=== PATIENT | male | born 1985 ===

== ENCOUNTER 2018-09-03 14:03 | Emergency (ER) | payer SELFPAY ==
--- NOTE | 2018-09-03 14:09 | ER Report ---
History and Physical Time Seen By MD: 14:09 HPI/ROS CHIEF COMPLAINT: upper dental pain HISTORY OF PRESENT ILLNESS: This is a 32 year old male. He has a history of dental problems in the past and a couple of days ago, had onset of pain in bilateral maxillary areas, somewhat worse on left side. Hurst to bite down. No pain with hot or cold exposure. Has broken teeth and poor dentition. Has not noted swollen gums or abscess/drainage. Denies fevers or chills. Mild cough, chronic, non-productive. Some pain in left anterior neck, thought was due to exercise. Not having significant congestion, but does have some drainage in throat, no sore throat. Not short of breath. Allergies: Coded Allergies: No Known Drug Allergies (Unverified , 09/03/18) Home Meds Active Scripts Amoxicillin (AMOXICILLIN) 500 Mg Capsule, 1 CAP PO Q8H, #30 CAPSULE 0 Refills Prov:SANDRA LOO MD 09/03/18 Reviewed Nurses Notes: Yes Constitutional Vital Sign - Last 24 Hours 09/03/18 09/03/18 14:07 15:53 Temp 98.5 98.3 Pulse 77 89 Resp 16 17 B/P (MAP) 126/81 107/89 (95) Pulse Ox 96 96 O2 Delivery Room Air Room Air Physical Exam General Appearance: Alert, no distress. Eyes: Pupils equal and round no injection. ENT: Normal oral mucosa. Moist mucous membranes. Poor dentition, and no redness in maxillary gums. Do not feel swelling with palpation of face, but has pain in bilateral maxillary areas. Has some thick post-nasal drainage and erythema in posterior oropharynx. Nasal mucosa shows erythema and mild mucous. Tympanic membranes are normal. Neck: Neck is supple and non tender to palpation at this time. No lymphadenopathy noted. Respiratory: Chest is non tender, lungs are clear to auscultation. Cardiac: regular rate and rhythm Neuro: Alert and oriented x3, no deficits. Skin: No rashes or lesions. DIFFERENTIAL DIAGNOSIS: After history and physical exam differential diagnosis was considered for bilateral maxillary pain, no real objective signs of dental infection, but this would be the most likely diagnosis. Would also consider sinus disease as there are changes in nose and throat consistent with this as well. IV, labs and contrast facial CT ordered. Medical Decision Making Data Points Result Diagram: 09/03/18 1425 09/03/18 1425 Laboratory Hematology Test 09/03/18 14:25 Red Blood Count 4.85 M/uL (4.00-5.60) Mean Corpuscular Volume 91.2 fL (80.0-96.0) Mean Corpuscular Hemoglobin 30.9 pg (26.0-33.0) Mean Corpuscular Hemoglobin Concent 33.9 g/dL (32.0-36.0) Red Cell Distribution Width 12.8 % (11.5-14.5) Mean Platelet Volume 8.4 fL (7.2-11.1) Neutrophils (%) (Auto) 66.1 % (39.4-72.5) Lymphocytes (%) (Auto) 21.8 % (17.6-49.6) Monocytes (%) (Auto) 9.7 % (4.1-12.4) Eosinophils (%) (Auto) 1.7 % (0.4-6.7) Basophils (%) (Auto) 0.7 % (0.3-1.4) Nucleated RBC Relative Count (auto) 0.0 /100WBC Neutrophils # (Auto) 5.6 K/uL (2.0-7.4) Lymphocytes # (Auto) 1.8 K/uL (1.3-3.6) Monocytes # (Auto) 0.8 K/uL (0.3-1.0) Eosinophils # (Auto) 0.1 K/uL (0.0-0.5) Basophils # (Auto) 0.1 K/uL (0.0-0.1) Nucleated RBC Absolute Count (auto) 0.00 K/uL Sodium Level 144 mmol/L (137-145) Potassium Level 4.2 mmol/L (3.5-5.0) Chloride Level 109 mmol/L (98-107) Carbon Dioxide Level 23 mmol/L (22-30) Blood Urea Nitrogen 16 mg/dl (9-21) Creatinine 0.80 mg/dl (0.66-1.25) Glomerular Filtration Rate Calc > 60.0 Random Glucose 99 mg/dl (75-110) Calcium Level 9.2 mg/dl (8.4-10.2) Total Bilirubin 0.5 mg/dl (0.2-1.3) Aspartate Amino Transf (AST/SGOT) 20 U/L (0-35) Alanine Aminotransferase (ALT/SGPT) 30 U/L (0-56) Alkaline Phosphatase 50 U/L (0-126) Total Protein 7.1 g/dl (6.3-8.2) Albumin 4.3 g/dl (3.5-5.0) Chemistry Test 09/03/18 14:25 White Blood Count 8.5 k/uL (4.5-11.0) Red Blood Count 4.85 M/uL (4.00-5.60) Hemoglobin 15.0 g/dL (14.0-18.0) Hematocrit 44.3 % (42.0-52.0) Mean Corpuscular Volume 91.2 fL (80.0-96.0) Mean Corpuscular Hemoglobin 30.9 pg (26.0-33.0) Mean Corpuscular Hemoglobin Concent 33.9 g/dL (32.0-36.0) Red Cell Distribution Width 12.8 % (11.5-14.5) Platelet Count 196 K/uL (150-450) Mean Platelet Volume 8.4 fL (7.2-11.1) Neutrophils (%) (Auto) 66.1 % (39.4-72.5) Lymphocytes (%) (Auto) 21.8 % (17.6-49.6) Monocytes (%) (Auto) 9.7 % (4.1-12.4) Eosinophils (%) (Auto) 1.7 % (0.4-6.7) Basophils (%) (Auto) 0.7 % (0.3-1.4) Nucleated RBC Relative Count (auto) 0.0 /100WBC Neutrophils # (Auto) 5.6 K/uL (2.0-7.4) Lymphocytes # (Auto) 1.8 K/uL (1.3-3.6) Monocytes # (Auto) 0.8 K/uL (0.3-1.0) Eosinophils # (Auto) 0.1 K/uL (0.0-0.5) Basophils # (Auto) 0.1 K/uL (0.0-0.1) Nucleated RBC Absolute Count (auto) 0.00 K/uL Glomerular Filtration Rate Calc > 60.0 Calcium Level 9.2 mg/dl (8.4-10.2) Total Bilirubin 0.5 mg/dl (0.2-1.3) Aspartate Amino Transf (AST/SGOT) 20 U/L (0-35) Alanine Aminotransferase (ALT/SGPT) 30 U/L (0-56) Alkaline Phosphatase 50 U/L (0-126) Total Protein 7.1 g/dl (6.3-8.2) Albumin 4.3 g/dl (3.5-5.0) EKG/Imaging Imaging EXAMINATION: CT facial bone with IV contrast HISTORY: Bilateral maxillary pain, left side worse. COMPARISON: None. TECHNIQUE: Axial images were obtained from the superior aspect of the orbits through the inferior aspect of mandible with IV contrast. Coronal and sagittal reformatted images were obtained from the axial source data. CONTRAST: 75 mL of IV Isovue-370. One of the following dose optimization techniques was utilized in the performance of this exam: Automated exposure control; adjustment of the mA a nd/or kV according to the patient's size; or use of an iterative reconstruction technique. Specific details can be referenced in the facility's radiology CT exam operational policy. FINDINGS: Soft tissues: There is no focal soft tissue abscess or fluid collection. Mandible/TMJ: The mandibular premolar and molar teeth are absent bilaterally. There are dental caries of the crowns of the remaining teeth. Maxilla/pterygoid plates: A few of the bilateral maxillary premolar and molar teeth are absent. There are dental caries of most of the remaining maxillary teeth, worst in the left 2nd molar tooth. There is an unerupted supernumerary tooth incidentally noted in the left hard palate. Zygoma/zygomatic arches: Negative. Orbits: Negative. Nasal bones/nasal septum: Mild nasal septal deviation to the right and an uncomplicated left elle bullosa. Frontal bones: Negative. Enhancement: Normal. Sinuses: Mild mucosal thickening in the left maxillary sinus. Visualized brain: Negative. IMPRESSION: 1. Several absent mandibular and maxillary premolar and molar teeth, with de ntal caries of the crowns of most of the remaining teeth. 2. No soft tissue abscess or imaging evidence of cellulitis. Report Dictated By: Deidre Vigil MD at 09/03/2018 3:09 PM ED Course/Re-evaluation ED Course Dental infection most likely given negative CT scan. No abscess. No large sinusitis although mild left maxillary sinus disease. Amoxicillin and recommend ed f/u with dentist. Decision to Disposition Date: Sep 03, 2018 Decision to Disposition Time: 15:44 Depart Departure Latest Vital Signs Vital Signs Date Time Temp Pulse Resp B/P (MAP) Pulse Ox O2 Delivery O2 Flow Rate FiO2 09/03/18 15:53 98.3 89 17 107/89 (95) 96 Room Air Impression: Primary Impression: Pain, dental Condition: Improved Disposition: HOME OR SELF-CARE New Scripts Amoxicillin (AMOXICILLIN) 500 Mg Capsule 1 CAP PO Q8H, #30 CAPSULE 0 Refills Prov: SANDRA LOO MD 09/03/18 Patient Instructions: Toothache (ED) Additional Instructions: Your pain is likely from dental infection, although no sign of abscess at this time. Minimal thickening in left sinus, but no major sinus disease. Amoxicillin 500mg three times a day for 10 days. Tylenol or Ibuprofen as needed for pain. Follow-up with your dentist. SANDRA LOO MD Sep 03, 2018 14:10
[2018-09-03 14:41] LABS: PLATELET COUNT, AUTOMATED 196 K/uL (150-450)
[2018-09-03] MEDS ORDERED: IOPAMIDOL 76% 100 ML INFUS BTL 100 ML ONE (14:52)
--- NOTE | 2018-09-03 15:30 | RADIOLOGY IMAGING REPORT ---
FACILITY: [facility] PATIENT NAME: Maciel Rocha : 1985 MR: [id number] V: [id number] EXAM DATE: ORDERING PHYSICIAN: SANDRA LOO TECHNOLOGIST: Location: [facility] [place] Patient: Maciel Rocha : 1985 Visit/Account:[id number] Date of Sevice: 09/03/2018 EXAMINATION: CT facial bone with IV contrast HISTORY: Bilateral maxillary pain, left side worse. COMPARISON: None. TECHNIQUE: Axial images were obtained from the superior aspect of the orbits through the inferior as pect of mandible with IV contrast. Coronal and sagittal reformatted images were obtained from the axi al source data. CONTRAST: 75 mL of IV Isovue-370. One of the following dose optimization techniques was utilized in the performance of this exam: Autom ated exposure control; adjustment of the mA and/or kV according to the patient's size; or use of an i terative reconstruction technique. Specific details can be referenced in the facility's radiology C T exam operational policy. FINDINGS: Soft tissues: There is no focal soft tissue abscess or fluid collection. Mandible/TMJ: The mandibular premolar and molar teeth are absent bilaterally. There are dental matt s of the crowns of the remaining teeth. Maxilla/pterygoid plates: A few of the bilateral maxillary premolar and molar teeth are absent. Ther e are dental caries of most of the remaining maxillary teeth, worst in the left 2nd molar tooth. The re is an unerupted supernumerary tooth incidentally noted in the left hard palate. Zygoma/zygomatic arches: Negative. Orbits: Negative. Nasal bones/nasal septum: Mild nasal septal deviation to the right and an uncomplicated left elle b ullosa. Frontal bones: Negative. Enhancement: Normal. Sinuses: Mild mucosal thickening in the left maxillary sinus. Visualized brain: Negative. IMPRESSION: 1. Several absent mandibular and maxillary premolar and molar teeth, with dental caries of the crown s of most of the remaining teeth. 2. No soft tissue abscess or imaging evidence of cellulitis. Report Dictated By: Deidre Vigil MD at 09/03/2018 3:09 PM Report E-Signed By: Deidre Vigil MD at 09/03/2018 3:25 PM WSN:[email or web address]
[2018-09-03] MEDS ORDERED: AMOX-362 PO (15:46)
[2018-09-03 15:53] VITALS: BP 107/89
== END 2018-09-03 15:53 | disposition home or self-care (01) ==
LOC: ER 14:17
DX: K08.89 Other specified disorders of teeth and supporting structures (principal)
CPT/HCPCS: 70487; 85025; 99284; Q9967; 82040; 82247; 82310; 82374; 82435; 82565; 82947; 84075; 84132; 84155; 84295; 84450; 84460; 84520

== ENCOUNTER 2018-11-07 22:38 | Emergency (ER) | payer SELFPAY ==
[~2018-11-07 22:38] MED LIST: AMOX-362 PO
[2018-11-07 22:41] VITALS: BP 125/89
--- NOTE | 2018-11-07 22:41 | ER Report ---
History and Physical Time Seen By MD: 22:36 HPI/ROS CHIEF COMPLAINT: Left upper dental pain, facial swelling HISTORY OF PRESENT ILLNESS: 32-year-old male presents ambulatory to the ER complaining of left upper dental pain for 2 days. He notes one day of facial swelling. He notes no difficulty swallowing or breathing. He has a tooth with a large cavity in it. Patient notes 7/10 throbbing pain aggravated by chewing. REVIEW OF SYSTEMS: Respiratory: No cough, no dyspnea. Cardiovascular: No chest pain, no palpitations. Gastrointestinal: No vomiting, no abdominal pain. Musculoskeletal: No back pain. Allergies: Coded Allergies: No Known Drug Allergies (Unverified , 11/07/18) Home Meds Active Scripts Hydrocodone Bit/Acetaminophen (HYDROCODON-ACETAMINOPHEN 5-325) 1 Each Tablet, 1 EACH PO Q4-6H PRN for PAIN, #12 TAKE ONE TABLET BY MOUTH EVERY 4-6 HOURS NEEDED FOR PAIN Prov:ANGELIC HARRY 11/07/18 Clindamycin Hcl (CLINDAMYCIN HCL) 300 Mg Capsule, 300 MG PO TID for infection, #30 CAPSULE TAKE 1 CAPSULE EVERY SIX HOURS Prov:ANGELIC HARRY 11/07/18 Discontinued Scripts Amoxicillin (AMOXICILLIN) 500 Mg Capsule, 1 CAP PO Q8H, #30 CAPSULE 0 Refills Prov:SANDRA LOO MD 09/03/18 Reviewed Nurses Notes: Yes Old Medical Records Reviewed: Yes Hx Substance Use Disorder: No Hx Alcohol Use: No Constitutional Vital Sign - Last 24 Hours 11/07/18 22:41 Temp 98.1 Pulse 72 Resp 15 B/P (MAP) 125/89 Pulse Ox 97 O2 Delivery Room Air Physical Exam General Appearance: The patient is alert, has no immediate need for airway protection and no current signs of toxicity. Vital signs stable, afebrile, pulse ox normal HEENT: Pupils equal and round no injection. TMs normal, oropharynx tooth at position #12, has a large dental carry. There is surrounding gum inflammation. Respiratory: Chest is non tender, lungs are clear to auscultation. Cardiac: regular rate and rhythm, no murmur Musculoskeletal: Neck: Neck is supple and non tender. No induration, no lymphadenopathy Extremities have full range of motion and are non tender. Skin: No rashes or lesions. DIFFERENTIAL DIAGNOSIS: After history and physical exam differential diagnosis was considered for toothache, dental abscess, fistula to sinus cavity, sinusitis, Medical Decision Making ED Course/Re-evaluation ED Course Patient was admitted to an examination room. H&P was done. The differential diagnoses was considered. Patient with obvious tooth abscess. He'll be treated with clindamycin antibiotic. He limited supply of Lortab pain pills. He's advised to take ibuprofen along with it. He is advised to follow-up with the dentist as soon as possible. Decision to Disposition Date: Nov 07, 2018 Decision to Disposition Time: 22:59 Depart Departure Latest Vital Signs Vital Signs Date Time Temp Pulse Resp B/P (MAP) Pulse Ox O2 Delivery O2 Flow Rate FiO2 11/07/18 22:41 98.1 72 15 125/89 97 Room Air Impression: Primary Impression: Tooth abscess Condition: Improved Disposition: HOME OR SELF-CARE New Scripts Hydrocodone Bit/Acetaminophen (HYDROCODON-ACETAMINOPHEN 5-325) 1 Each Tablet 1 EACH PO Q4-6H PRN for PAIN, #12 TAKE ONE TABLET BY MOUTH EVERY 4-6 HOURS NEEDED FOR PAIN Prov: ANGEILC HARRY DO 11/07/18 Clindamycin Hcl (CLINDAMYCIN HCL) 300 Mg Capsule 300 MG PO TID for infection, #30 CAPSULE TAKE 1 CAPSULE EVERY SIX HOURS Prov: ANGELIC HARRY DO 11/07/18 Patient Instructions: Dental Abscess (ED) Additional Instructions: Take ibuprofen 200 mg 3-4 tablets 3 times a day with food Apply warm compresses to the affected area Take antibiotics until completely gone Follow-up with dentist as soon as possible ANGELIC HARRY DO Nov 07, 2018 22:41
[2018-11-07] MEDS ORDERED: ACET/HYDROC 5/325MG TH ER ONLY 2 TAB/BOTTLE PO ONE (23:10)
[2018-11-07] MEDS ORDERED: CLINDAMYCIN 150 MG CAP PO ONE (23:10)
[2018-11-07] MEDS ORDERED: LOR5/325 PO (23:12)
[2018-11-07] MEDS ORDERED: CLIN300C99 PO (23:12)
== END 2018-11-07 23:50 | disposition home or self-care (01) ==
LOC: ER 22:46
DX: K04.7 Periapical abscess without sinus (principal)
CPT/HCPCS: 99283